=== PATIENT | female | born 1980 | race Caucasian/White ===

== ENCOUNTER → 2020-12-29 | Outpatient (CLI) | payer BC, OTHER | LOC: NUC 08:40 | PROVIDERS: ATTEND Neuromusculoskeletal Medicine & OMM | DX: K83.5 Biliary cyst (principal) ==

== ENCOUNTER 2021-01-14 07:54 | Day surgery (SDC) | payer BC, OTHER ==
[2021-01-14] VITALS (7 sets, daily range): BP systolic 128–137; BP diastolic 88–100
[~2021-01-14] VITALS: Ht 180.3 cm; Wt 109.8 kg
--- NOTE | ~2021-01-14 | O ---
[facility] [place] [address] OPERATIVE REPORT Name: SALLIE BAKER Room #: DEP [facility]..#: [id number] Admission: 01/14/21 Attend Phys: Jasbir Menjivar MD Discharge: 01/14/21 Date of : 82 Report #: [id number] THIS REPORT FOR: cc: Yair Dugan,Jasbir Calderon MD ~ cc: Yair Dugan MD DATE OF SERVICE: 01/14/2021 PREOPERATIVE DIAGNOSES: Cholecystitis with acalculous cholecystitis. POSTOPERATIVE DIAGNOSES: Cholecystitis with acalculous cholecystitis, acalculous cholecystitis with cholesterolosis. Adhesion found around the gallbladder. PROCEDURE PERFORMED: Laparoscopic cholecystectomy with cholangiogram. ANESTHESIA: General. SURGEON: Jasbir Menjivar MD. COMPLICATIONS: None. BLOOD LOSS: 5 mL. DESCRIPTION OF PROCEDURE: With the patient under general anesthesia, abdomen was prepped and draped in sterile fashion. A 2 cm curvilinear incision was made infraumbilically. Fascia was identified easily. Fascia was noted to be fairly thin from multiple . Fascia was grasped with hemostat. Fascia was then opened. 0 Vicryl suture placed on the fascial edges for retraction. Veress needle was then placed through the peritoneum, which was very close by and then CO2 was insufflated without difficulty. Pneumoperitoneum was established. After establishing pneumoperitoneum, 11 mm trocar was placed under visualization into the abdominal cavity and pneumoperitoneum, no harm to underlying tissue. Two 5 mm trocars placed in right upper quadrant and a 5 mm trocar placed in right epigastrium. Moderate colonic distention was noted. Gallbladder was lifted over the liver. The duodenum is fairly flexible and adhesed to the gallbladder. This is adhesed up about a third of the gallbladder. This is likely from chronic gallbladder inflammation. The adhesions were taken down. Peritoneum was dissected free over the gallbladder both laterally and medially. The cystic duct was isolated. There were multiple fibrous bands over the cystic duct. The cystic duct was identified to the junction of the gallbladder. A clip was placed at the junction of cystic duct and the gallbladder. Opening was made in the cystic duct. Cholangiogram catheter was placed. Fluoroscopic cholangiogram was obtained. The common bile [address] [address] OPERATIVE REPORT Name: SAMUELSALLIE REINA Room #: DEP [facility] M..#: [id number] Admission: 01/14/21 Attend Phys: Jasbir Menjivar MD Discharge: 01/14/21 Date of : 82 Report #: [id number] duct filled out well. There is air bubble. No stone defect. The patient did not have any stones in her gallbladder. I do not anticipate stones in the common duct. Cholangiogram catheter was identified in the cystic duct, a little extravasation at the cannulation site. No harm to the common duct was seen. Cholangiogram catheter was removed. The proximal cystic duct was then clipped x 2 and then divided. The artery was isolated, clipped x 2 proximally, 1 distally and then divided. Gallbladder was freed from the liver bed without difficulty with cautery. Gallbladder was then retrieved through the infraumbilical port. Gallbladder was opened off the field. There is significant cholesterol deposit seen. Liver bed was checked, hemostasis obtained. Clips were intact. No blood or bile was identified. Irrigation was aspirated out. Trocars removed. CO2 was evacuated as much as possible. The fascial defect infraumbilically was closed with [id number] 0 Vicryl x 2. Skin was irrigated. Skin was closed with 5-0 PDS. Steri-Strips, Band-Aids applied. The patient tolerated the procedure well. By: [id number] Jasbir Menjivar MD /nt
[~2021-01-14 07:54] MED LIST: BUPROPION XL300 MG PO; LEVOTHYROXINE125 MCG PO; MEDROXYPROGESTE10 MG PO; OXYBUTYNIN CHLOR5 M1 PO; PAROXETINE HCL20 MG PO; SUMATRIPTAN SU100 MG PO
[2021-01-14] MEDS ORDERED: HYDROCODON-ACE1 EAC7 PO (12:15)
--- NOTE | 2021-01-14 16:35 | NUR ---
ASSUMED CARE OF PT XFER FROM PACU. 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 PT WAS A/OX4, EYES PERRLA, C/O PAIN IN THE ABD IN GENREAL. PT WAS GIVEN HYDROCODONE/APAP 5/325 FOR PAIN AND RELIEVED IT WELL. ASSESSMENTAS NOTED IN CHART AND OTHERWISE UNREMARKABLE. PT IS WANTING TO DISCHARGE AND GO HOME. HCP ALREADY HAS DISCHARGE ORDERS FOR THE PT AND HAS BEEN SIGNED WITH INSTRUCTIONS LEFT FOR THE PT TO TAKE HOME. MEDS AND TX GIVEN NEEDED AND SCHEDULED. MONITORING PT UNTIL SHE IS READY TO LEAVE. IV HAS BEEN DC'D AND PT IS DRESSED.
--- NOTE | 2021-01-18 11:08 | PATH ---
[facility] [address] [place] [address] PATHOLOGY RPT PROCEDURE Name: SALLIE BAKER Room #: DEP [facility]..#: [id number] Admission: 01/14/21 Date of : 82 Discharge: 01/14/21 Report #: [id number] Path Case #: [id number] [facility] Accession Number: [id number] . 01 Material submitted: . gallbladder - GALLBLADDER . 01 Clinical history: . ACUTE CHOLECYSTITIS . 02 Diagnosis: Gallbladder, cholecystectomy: - Mild chronic cholecystitis. (IUV/db; 01/17/2021) LBQ 01/17/2021 1807 Local . 02 Electronically signed: . Donna Calles MD, Pathologist NPI- [id number] . 01 Gross description: . Fixative: Formalin Labeled: Gallbladder Specimen received: Previously opened gallbladder Dimensions: 7.0 x 3.0 x 1.5 cm Serosa: Green bile-stained Lymph node: Not present Mucosa: Velvety green bile-stained Average wall thickness: 0.1-0.3 Calculi: No calculi present in the specimen work container Abnormalities: No grossly apparent lesions A1- [employer] body, fundus, and the cystic duct margin. ([facility]; 01/15/2021) [facility] 01/15/2021 1218 Local . 02 Pathologist provided ICD-10: K81.1 . 02 CPT . 265123 Specimen Comment: A courtesy copy of this report has been sent to [phone] Specimen Comment: Report sent to Performed at: [address], [place] [id number] MD Jah Zeng MD Phone: [phone] Performed at: [address] [address] PATHOLOGY RPT PROCEDURE Name: SALLIE BAKER Room #: DEP [facility]..#: [id number] Admission: 01/14/21 Date of : 82 Discharge: 01/14/21 Report #: [id number] Path Case #: [id number] [address] [id number] MD Donna Calles MD Phone: [phone]
== END 2021-01-14 17:36 | disposition home or self-care (01) ==
LOC: OR 07:54 → 4S 14:10 → OR 15:01
PROVIDERS: ATTEND Surgery
DX: K81.1 Chronic cholecystitis (principal); E03.9 Hypothyroidism, unspecified; F31.9 Bipolar disorder, unspecified; G43.909 Migraine, unspecified, not intractable, without status migrainosus; K21.9 Gastro-esophageal reflux disease without esophagitis; Z98.890 Other specified postprocedural states; Z79.899 Other long term (current) drug therapy; Z90.49 Acquired absence of other specified parts of digestive tract; F41.9 Anxiety disorder, unspecified
CPT/HCPCS: 10102; 50010; 50101; 50411; 50555; 50558; 51489; 52265; 53307; 53310; 55245; 55317; 56462; 56525; 56526; 58574; 62110; 62900; 70005